=== PATIENT | female | born 1985 | race Caucasian/White ===

== ENCOUNTER 2016-07-20 18:28 | Outpatient (CLI) | payer OTHER ==
[~2016-07-20] VITALS: Ht 160 cm; Wt 75.8 kg
[2016-07-20 18:45] VITALS: Ht 160 cm; Wt 75.8 kg
[2016-07-20 18:53] VITALS: BP 117/70; PULSE 104; RESP 18
--- NOTE | 2016-07-20 18:54 | RADRPT ---
PROCEDURE: US OB biophysical profile. CLINICAL INDICATION: evaluation TECHNIQUE: Multiple sonographic images of the pelvis were obtained. The images were reviewed on a PACS workstation. COMPARISON: Obstetrical ultrasound from 05/18/2016 FINDINGS: There is a single viable intrauterine gestation. Cardiac activity is present with 154 beats per min jeri. There is a vertex presentation. The placenta is fundal. There is no evidence of placental abruption. There is a normal amount of amniotic fluid with an MOIZ = 12.2 cm. Biophysical profile: movement 2/2 tone 2/2. breathing 2/2 MOIZ 2/2 Total 01/11 RPTAT: AA . IMPRESSION: Normal biophysical profile. Normal MOIZ. Physician Rocio Date Time Electronically viewed and signed by Physician Rocio on 07/20/2016 18:54 RA/
[2016-07-20] MEDS ORDERED: PRENAT PO (18:56)
[2016-07-20] MEDS ORDERED: FERR325C PO (18:57)
[2016-07-20] MEDS ORDERED: ACETAMINOPHEN 325 MG TAB PO STA (19:07)
[2016-07-20 19:22] LABS: BASOPHILS % 0.3 % (0.0-2.0); EOSINOPHILS # 0.1 10^3/ul (0.0-0.5); EOSINOPHILS % 0.9 % (0.0-7.0); HEMATOCRIT 39.1 % (37.0-47.0); HEMOGLOBIN 13.4 g/dl (12.0-16.0); LYMPHOCYTES # 1.7 10^3/ul (0.8-2.9); LYMPHOCYTES % 12.8 % (15.0-51.0); MEAN CORPUSCULAR HEMOGLOBIN 32.3 pg (29.0-33.0); MEAN CORPUSCULAR HGB CONC 34.2 g/dl (32.0-37.0); MEAN CORPUSCULAR VOLUME 94.6 fl (82.0-101.0); MEAN PLATELET VOLUME 9.9 fl (7.4-10.4); MONOCYTE # 0.9 10^3/ul (0.3-0.9); MONOCYTES % 6.8 % (0.0-11.0); NEUTROPHIL # 10.4 10^3/ul (1.6-7.5); NEUTROPHILS % 79.2 % (39.0-77.0); PLATELET COUNT 178 10^3/UL (140-440); RED BLOOD COUNT 4.14 10^6/ul (4.20-5.40); UNCORRECTED WBC 13.2 10^3/ul (4.8-10.8); WHITE BLOOD COUNT 13.2 10^3/ul (4.8-10.8)
[2016-07-20 19:26] LABS: CONDITION 1
[2016-07-20 19:27] LABS: ADD UMIC NO; URINE BILIRUBIN (Dip) NEGATIVE (NEGATIVE); URINE BLOOD (Dip) NEGATIVE (NEGATIVE); URINE COLOR LT. YELLOW (YELLOW); URINE GLUCOSE (Dip) NEGATIVE (NEGATIVE); URINE KETONES (Dip) NEGATIVE (NEGATIVE); URINE LEUKOCYTE ESTERASE (Dip) NEGATIVE (NEGATIVE); URINE NITRITE (Dip) NEGATIVE (NEGATIVE); URINE TOTAL PROTEIN (Dip) NEGATIVE (NEGATIVE); URINE UROBILINOGEN (Dip) 0.2 E.U./dL (0.1-1.0)
[2016-07-20 19:31] LABS: ALBUMIN 3.2 g/dl (3.3-4.9); POTASSIUM 3.8 mmol/L (3.5-5.1)
[2016-07-20 19:33] LABS: BILIRUBIN,INDIRECT 0.2 mg/dl (0-1.1); BILIRUBIN,TOTAL 0.2 mg/dl (0.2-1.3); CREATININE 0.61 mg/dl (0.44-1.00)
[2016-07-20 19:34] LABS: ALBUMIN/GLOBULIN RATIO 1.06; CALCIUM 9.3 mg/dl (8.4-10.2); TOTAL PROTEIN 6.2 g/dl (6.1-8.1)
--- NOTE | 2016-07-20 20:43 | TRIAGE ---
OB Triage Datetime Report Generated by CPN: 07/20/2016 20:43 Datetime: 07/20/2016 20:06 Stage of : OB Triage Labor Evaluation Frequency: x2 Monitor Mode: External Duration (sec)2399: 90-110 Quality: Mild Resting Tone [place]: Relaxed Heart Rate FHR Baseline Rate: 135 Monitor Mode: External US FHR Baseline Changes: No Baseline Change Variability: Moderate 6-25 bpm Accelerations: 15X15 Decelerations: None Category: Category I Datetime: 07/20/2016 20:05 Stage of : OB Triage Datetime: 07/20/2016 20:01 Stage of : OB Triage Datetime: 07/20/2016 19:30 Stage of : OB Triage Labor Evaluation Frequency: 0 Monitor Mode: External Resting Tone [place]: Relaxed Heart Rate FHR Baseline Rate: 135 Monitor Mode: External US Variability: Moderate 6-25 bpm Accelerations: 15X15 Decelerations: None Category: Category I Datetime: 07/20/2016 19:03 Stage of : OB Triage Datetime: 07/20/2016 19:02 Stage of : OB Triage Datetime: 07/20/2016 18:55 Assessment Type: Triage Maternal Assessment Level of Consciousness: Fully Conscious DTR's/Clonus: DTRs 2+; No Clonus Headache: Temporal; Bilateral Blurred Vision: No Respiratory Effort: Unlabored Breath Sounds, Left: Clear and Equal Breath Sounds, Right: Clear and Equal Nausea/Vomiting: Denies RUQ Epigastric Pain: Denies Lower Extremities Edema: None Degree: None Upper Extremities Edema: None Degree: None Facial Edema: None Fall Risk Assessment History of Falling: (0) No Secondary Diagnosis: (0) No Ambulatory Aid: (0) Bedrest/Nurse Assist IV Therapy: (0) No Gait: (0) Normal/Bedrest/Immobile Mental Status: (0) Oriented to Own Ability Fall Score: 0 Fall Risk Score Definition: No Risk: No action required Datetime: 07/20/2016 18:44 Stage of : OB Triage Datetime: 07/20/2016 18:40 Stage of : OB Triage Monitor Mode: External Monitor Mode: External US Comments: fhts audible at 155 bts/min Datetime: 07/20/2016 18:35 Stage of : OB Triage Datetime: 07/20/2016 18:32 Time of Arrival: 07/20/2016 18:26 EGA: 35.0 Arrived By: Ambulatory Arrived From: Office Chief Complaint: Sent from clinic with orders to r/o preeclampsia Movement: Present Contractions: Denies/Absent Rupture of Membranes: Denies Vaginal Bleeding: None Vaginal Discharge: Denies Recent Sexual Intercouse: Denies Abdominal Trauma: Not Applicable Patient Complaints: Headache; Visual Disturbance Time Provider Notified: 07/20/2016 19:07 Provider Notified: DELSHAD Initial Plan: VS, EFM, BP STUDIES, UA, CBCM CMP, URIC ACID, BPP Datetime: 05/18/2016 20:34 Stage of : OB Triage Labor Evaluation Frequency: None noted. Pt denies any abdominal pain or cramping. Monitor Mode: External Resting Tone [place]: Relaxed Heart Rate FHR Baseline Rate: 130 Monitor Mode: External US Variability: Moderate 6-25 bpm Comments: Difficult to monitor FHTs due to excessive movt. Pain Assessment Pain Scale: 0 Pain Presence: None/Denies Pain Type: N/A Datetime: 05/18/2016 20:19 Pain Presence: None/Denies Pain Assessment Comments: Pt denies any further HERNANDEZ pain Datetime: 05/18/2016 20:00 Stage of : OB Triage Labor Evaluation Frequency: None noted. Pt denies any abdominal pain or cramping. Monitor Mode: External Resting Tone [place]: Relaxed Heart Rate FHR Baseline Rate: 130 Monitor Mode: External US Variability: Moderate 6-25 bpm Accelerations: 15X15 Decelerations: None Comments: Difficult to monitor FHTs due to excessive movt. Datetime: 05/18/2016 19:33 Stage of : OB Triage Temperature Route: Oral Datetime: 05/18/2016 19:23 Stage of : OB Triage Assessment Type: Triage Maternal Assessment Level of Consciousness: Fully Conscious DTR's/Clonus: DTRs 2+; No Clonus Headache: Occipital; Temporal; Bilateral; Frontal Blurred Vision: No (Annotations: Denies any further blurred vision) Respiratory Effort: Unlabored; Regular Rhythm; Equal Expansion Breath Sounds, Left: Clear and Equal Breath Sounds, Right: Clear and Equal Nausea/Vomiting: Denies RUQ Epigastric Pain: Denies Lower Extremities Edema: None Degree: None Upper Extremities Edema: Bilateral Upper Extremities Degree: 1+ (Annotations: Hands) Facial Edema: 1+ (Annotations: per pt) Fall Risk Assessment History of Falling: (0) No Secondary Diagnosis: (0) No Ambulatory Aid: (0) Bedrest/Nurse Assist IV Therapy: (0) No Gait: (0) Normal/Bedrest/Immobile Mental Status: (0) Oriented to Own Ability Fall Score: 0 Fall Risk Score Definition: No Risk: No action required Pain Assessment Pain Scale: 2 Pain Presence: Constant Pain Type: Ache Pain Location: Head Pain Relief Measures: Comfort Measures Pain Assessment Comments: Will medicate with Tylenol per MD order Datetime: 05/18/2016 19:12 Stage of : OB Triage Maternal Assessment Level of Consciousness: Fully Conscious DTR's/Clonus: DTRs 2+ Headache: Occipital; Temporal Breath Sounds, Left: Clear and Equal Breath Sounds, Right: Clear and Equal Nausea/Vomiting: Denies RUQ Epigastric Pain: Denies Labor Evaluation Frequency: NONE Monitor Mode: External Resting Tone [place]: Relaxed Heart Rate FHR Baseline Rate: 140 Monitor Mode: External US Variability: Moderate 6-25 bpm Accelerations: 15X15 Category: Category I Comments: REACTIVE ACCORDING TO AGE Pain Assessment Pain Scale: 4 Pain Presence: Constant Pain Type: Ache Pain Location: Head Pain Goal: 3 Vaginal Exam Membrane Status: Intact Datetime: 05/18/2016 19:11 Stage of : OB Triage Datetime: 05/18/2016 18:44 Comments: UNABLE TO KEEP BABY ON MONITOR Datetime: 05/18/2016 18:38 Maternal Assessment Level of Consciousness: Fully Conscious DTR's/Clonus: DTRs 2+ Headache: Occipital; Temporal Blurred Vision: Yes Respiratory Effort: Unlabored Breath Sounds, Left: Clear and Equal Breath Sounds, Right: Clear and Equal Nausea/Vomiting: Denies RUQ Epigastric Pain: Denies Facial Edema: 1+ Labor Evaluation Frequency: NONE Resting Tone [place]: Relaxed Monitor Mode: Doppler Pain Assessment Pain Scale: 4 Pain Presence: Constant Pain Type: Ache Pain Location: Head Pain Goal: 3 Vaginal Exam Membrane Status: Intact Datetime: 05/18/2016 18:32 EGA: 26.0 Datetime: 05/18/2016 17:30 Stage of : OB Triage Maternal Assessment Level of Consciousness: Fully Conscious DTR's/Clonus: DTRs 2+ Headache: Occipital; Temporal Breath Sounds, Left: Clear and Equal Breath Sounds, Right: Clear and Equal Nausea/Vomiting: Denies RUQ Epigastric Pain: Denies Labor Evaluation Frequency: NONE Monitor Mode: External Resting Tone [place]: Relaxed Heart Rate FHR Baseline Rate: 140 Monitor Mode: External US Category: UNABLE TO KEEP BABY ON MONITOR Pain Assessment Pain Scale: 4 Pain Presence: Constant Pain Type: Ache Pain Location: Head Pain Goal: 3 Vaginal Exam Membrane Status: Intact Datetime: 05/18/2016 17:20 Assessment Type: Triage Maternal Assessment Level of Consciousness: Fully Conscious DTR's/Clonus: DTRs 2+; No Clonus Headache: Occipital; Temporal Blurred Vision: Yes Respiratory Effort: Unlabored; Regular Rhythm; Equal Expansion Breath Sounds, Left: Clear and Equal Breath Sounds, Right: Clear and Equal Nausea/Vomiting: Denies RUQ Epigastric Pain: Denies Lower Extremities Edema: None Degree: None Upper Extremities Edema: None Degree: None Facial Edema: PT STATES BEEN SWOLLEN Fall Risk Assessment History of Falling: (0) No Secondary Diagnosis: (0) No Ambulatory Aid: (0) Bedrest/Nurse Assist IV Therapy: (0) No Gait: (0) Normal/Bedrest/Immobile Mental Status: (0) Oriented to Own Ability Fall Score: 0 Fall Risk Score Definition: No Risk: No action required Datetime: 05/18/2016 17:10 Time of Arrival: 05/18/2016 17:10 Arrived By: Ambulatory Arrived From: Home Chief Complaint: PT CAME IN FROM THE DOCTOR OFFICE TO R/O ELEVATED BLOOD PRESSURES. B/P 142/93 AT OFFICE Movement: Present Contractions: Denies/Absent Rupture of Membranes: Denies Vaginal Bleeding: None Vaginal Discharge: Denies Recent Sexual Intercouse: Denies Abdominal Trauma: Not Applicable Patient Complaints: Headache; Visual Disturbance; Other Additional Patient Complaints: + BLURRED VISION, + GENERALIZED SWELLING, + HEADACHE, DENIES ANY EP IGASTRIC PAIN AND DTR'S +2 NEGATIVE CLONUS. Time Provider Notified: 05/18/2016 19:11 Provider Notified: Initial Plan: PIH PANEL, EFW AND MOIZ
== END 2016-07-20 20:50 | disposition home or self-care (01) ==
LOC: OBT 18:28 → L-D 18:29 → OBT 20:50
PROVIDERS: ATTEND Obstetrics & Gynecology
DX: O26.893 Other specified pregnancy related conditions, third trimester (principal); R51 Headache; H53.9 Unspecified visual disturbance; Z3A.35 35 weeks gestation of pregnancy
CPT/HCPCS: 36415; 76818; 80053; 81003; 84560; 85025; Z7500; Z7610; G0463

== ENCOUNTER 2018-01-01 10:59 | Outpatient (CLI) | END 2018-01-01 14:00 | disposition home or self-care (01) ==

== ENCOUNTER 2018-02-07 16:56 | Outpatient (CLI) | END 2018-02-07 22:21 | disposition home or self-care (01) ==

== ENCOUNTER 2018-03-26 05:40 | Inpatient (IN) | END 2018-03-28 14:40 | disposition home or self-care (01) | DRG 807 ==